=== PATIENT | male | born 1965 | race Caucasian/White ===

== ENCOUNTER 2019-01-09 10:15 | Outpatient (CLI) | payer OTHER ==
[~2019-01-09] VITALS: Ht 182.9 cm; Wt 86.2 kg
[2019-01-09] MEDS ORDERED: ATOR10TA66 PO (10:21)
[2019-01-09] MEDS ORDERED: LOSA25TA41 PO (10:21)
== END 2019-01-09 10:23 | disposition home or self-care (01) ==
LOC: PREOP 10:15
PROVIDERS: ATTEND Surgery
DX: Z01.818 Encounter for other preprocedural examination (principal)

== ENCOUNTER 2019-01-11 14:14 | Day surgery (SDC) | payer OTHER ==
[~2019-01-11] VITALS: Ht 182.9 cm; Wt 86.2 kg
[~2019-01-11 14:14] MED LIST: ATOR10TA66 PO; LOSA25TA41 PO
[2019-01-11] MEDS ORDERED: NS IV 500 ML 500 ML IV PRN (14:15)
[2019-01-11] MEDS ORDERED: LIDOCAINE JELLY 2% 6 ML SYRINGE MM PRN (14:15)
[2019-01-11] MEDS ORDERED: MIDAZOLAM 2 MG/2 ML (VERSED) VIAL IVP ONE (14:15)
[2019-01-11] MEDS ORDERED: fentaNYL INJECTION 100 MCG/2 ML AMP IVP ONE (14:15)
[2019-01-11] MEDS ORDERED: NS IV 500 ML 500 ML ONE (14:16)
[2019-01-11 14:25] VITALS: BP 130/82
--- NOTE | 2019-01-11 14:52 | Conscious Sedation/ASA ---
Conscious Sedation Pre-Proced Time 14:45 ASA Score 2 For ASA 3 and 4: Consider anesthesia and medical clearance. Also, for patients with a history of failed moderate sedation consider anesthesia. Airway Lungs Heart ASA score ASA 1: a normal healthy patient ASA 2: a patient with a mild systemic disease (mid diabetes, controlled hypertension, obesity ASA 3: a patient with a severe systemic disease that limits activity (angina, COPD, prior Myocardial infarction) ASA 4: a patient with an incapacitating disease that is a constant threat to life (CHF, renal failure) ASA 5: a moribund patient not expected to survive 24 hrs. (ruptured aneurysm) ASA 6: a declared brain- patient whose organs are being harvested. For emergent operations, add the letter E after the classification Mallampati Classification Grade 2 Sedation Plan Analgesia, Amnesia, Plan communicated to team members, Discussed options with patient/fam, Discussed risks with patient/fam The patient is an appropriate candidate to undergo the planned procedure, sedation, and anesthesia. The patient immediately re-assessed prior to indication. SUMMER MARTINEZ MD Jan 11, 2019 14:52
--- NOTE | 2019-01-11 14:53 | Progress Note-Pre Operative ---
Pre-Operative Progress Note H&P Reviewed The H&P was reviewed, patient examined and no changes noted. Date Seen by Provider: Jan 11, 2019 Time Seen by Provider: 14:45 Date H&P Reviewed: Jan 11, 2019 Time H&P Reviewed: 14:45 Pre-Operative Diagnosis: screening colonoscopy SUMMER MARTINEZ MD Jan 11, 2019 14:53
--- NOTE | 2019-01-11 14:54 | Discharge Inst-Surgical ---
D/C Lap Instructions-JUAN Follow Up Activity as tolerated Regular Diet Symptoms to Report: Fever over 101 degree F, Nausea/Vomiting Infection Signs and Symptoms to report: Increased redness, Foul odor of wound, Increased drainage Bathing instructions: May shower Operative Area Clean/Dry; Keep incision clean/dry If any problems/questions: Contact your physician or go to Emergency Room SUMMER MARTINEZ MD Jan 11, 2019 14:54
[2019-01-11] MEDS ORDERED: morphine INJ 10 MG/ML 1ML (SYR OR VIAL) IVP PRN ×2 (15:00)
[2019-01-11] MEDS ORDERED: ACETAMINOPHEN 325 MG TABLET PO PRN (15:00)
[2019-01-11] MEDS ORDERED: ONDANSETRON 4 MG/2 ML (SDV) Z0FRAN IVP PRN (15:00)
[2019-01-11] MEDS ORDERED: HYDROcodone/APAP 5 MG/325 MG (LORTAB) TAB PO PRN (15:00)
[2019-01-11] MEDS ORDERED: fentaNYL INJECTION 100 MCG/2 ML AMP ONE ×2 (15:15→15:16)
[2019-01-11] MEDS ORDERED: MIDAZOLAM 2 MG/2 ML (VERSED) VIAL ONE ×4 (15:15→15:16)
[2019-01-11] MEDS ORDERED: LIDOCAINE JELLY 2% 6 ML SYRINGE ONE (15:15)
--- NOTE | 2019-01-11 15:51 | Progress Note-Post Operative ---
Post-Operative Progess Note Surgeon (s)/Gas Pump Attendant (s) Surgeon SUMMER MARTINEZ MD Gas Pump Attendant: none Pre-Operative Diagnosis screening colonoscopy Post-Operative Diagnosis normal colon and rectum Procedure & Operative Findings Date of Procedure 01/11/19 Procedure Performed/Findings colonoscopy Anesthesia Type cs Estimated Blood Loss Estimated blood loss (mL): minimal Specimens/Packing Specimens Removed none SUMMER MARTINEZ MD Jan 11, 2019 15:51
[2019-01-11 16:05] VITALS: BP 106/64
[2019-01-11 16:30] VITALS: BP 112/66
[2019-01-11 16:40] VITALS: BP 112/66
--- NOTE | 2019-01-22 20:33 | OPERATIVE REPORT ---
DATE OF SERVICE: 01/11/2019 ATTENDING PRIMARY CARE PHYSICIAN: Dr. Funk. PREOPERATIVE DIAGNOSIS: Screening colonoscopy. POSTOPERATIVE DIAGNOSIS: Normal colon and rectum. PROCEDURE: Colonoscopy. SURGEON: Summer Martinez MD ANESTHESIA: Conscious sedation. ESTIMATED BLOOD LOSS: Minimal. FINDINGS: Normal colon and rectum. DISPOSITION: The patient tolerated the procedure well. INDICATIONS: The patient is a 53-year-old male referred over to us for a screening colonoscopy. He has not had a colonoscopy up to this point in his life. He does not report any major issues with diarrhea nor constipation as well as no red blood per rectum nor any dark tarry stools. He also does not report any family history of colon cancer. DESCRIPTION OF PROCEDURE: The patient was brought to the endoscopy suite, laid in the left lateral decubitus position. After adequate IV pain and sedating medications and conscious sedation anesthesia, a digital rectal examination was performed. No significant hemorrhoids were identified. The prostate gland was palpable and appeared normal. The endoscope was then intubated to the anus and rectum gently insufflated. The endoscope was then advanced to the valves of Arri[place] in the rectum with no polyps or any neoplasms identified. The endoscope was then advanced through the sigmoid colon where no diverticulosis identified. The endoscope was then advanced to the remainder of the descending, transverse and ascending colon to the cecum. These segments were normal. There were no polyps or any neoplasms identified throughout the colon or rectum. The endoscope was then slowly withdrawn while taking a second look and suctioning of residual air with no additional findings. The patient tolerated the procedure well. We will recommend continued conservative management with a high fiber diet with at least 30 grams of fiber per day as well as significant amounts of water to promote soft stools on a daily basis. He does not need another colonoscopy for another 10 years. Job ID: [id number] DocumentID: [id number] Dictated Date: 01/22/2019 15:13:21 Public Works Supervisor Date: 01/22/2019 20:33:01 Dictated By: SUMMER MARTINEZ MD
== END 2019-01-11 16:40 | disposition home or self-care (01) ==
LOC: ENDO 14:14
PROVIDERS: ATTEND Surgery
DX: Z12.11 Encounter for screening for malignant neoplasm of colon (principal); I10 Essential (primary) hypertension; E78.00 Pure hypercholesterolemia, unspecified; Z79.82 Long term (current) use of aspirin; Z79.899 Other long term (current) drug therapy

== ENCOUNTER 2020-03-26 15:58 | Emergency (ER) | payer OTHER ==
[~2020-03-26] VITALS: Ht 182.8 cm; Wt 90.7 kg
--- NOTE | 2020-03-26 16:14 | ED General ---
General Stated Complaint: CHEST PAIN;SOA Source of Information: Patient Exam Limitations: No Limitations History of Present Illness Date Seen by Provider: Mar 26, 2020 Time Seen by Provider: 16:10 Initial Comments to ER with reports of chest pain and shortness of breath and right axillary pain. This began about 3 weeks ago, some days he feels fine and other days he has some shortness of breath. He does have a little bit of a cough. It's nonproductive. No fever no chills. He occasionally has some sensation of his heart skipping a beat/palpitations and lightheadedness. He is a runner and otherwise healthy. He had an EKG last week and was normal. He has a CT scan ordered for Monday. However today he had some increasing shortness of breath and new right axillary and scapular pain which prompted his ER visit. Timing/Duration: 1-2 Days Severity: Moderate Associated Systoms: Chest Pain, Cough; No Headaches, No Malaise, No Na usea/Vomiting; Shortness of Air; No Weakness Allergies and Home Medications Allergies Coded Allergies: No Known Drug Allergies (Verified , 01/11/19) Home Medications Atorvastatin Calcium Unknown Strength Tablet, 1 TAB PO DAILY, (Reported) Losartan Potassium Unknown Strength Tablet, 1 TAB PO DAILY, (Reported) Patient Home Medication List Home Medication List Reviewed: Yes Review of Systems Review of Systems Constitutional: see HPI; No chills, No fever EENTM: see HPI Respiratory: no symptoms reported Cardiovascular: see HPI, palpitations Genitourinary: no symptoms reported Musculoskeletal: see HPI Skin: no symptoms reported Psychiatric/Neurological: No Symptoms Reported Hematologic/Lymphatic: No Symptoms Reported Immunological/Allergic: no symptoms reported Past Xscruyq-Nljwwn-Cqomob Hx Patient Social History Alcohol Beverage of Choice: Beer Type Used: Cigars Recent Hopitalizations: No Seasonal Allergies Seasonal Allergies: No Past Medical History Surgeries: Yes (nasal sinus sx) Appendectomy Respiratory: No Cardiac: Yes High Cholesterol, Hypertension Neurological: No Reproductive Disorders: No Genitourinary: No Gastrointestinal: No Musculoskeletal: No Endocrine: No HEENT: No Cancer: No Psychosocial: No Integumentary: No Blood Disorders: No Physical Exam Vital Signs Vital Signs - First Documented 03/26/20 16:00 Temp 36.7 Pulse 60 Resp 23 B/P (MAP) 160/103 (122) Pulse Ox 97 O2 Delivery Room Air Capillary Refill : Height, Weight, BMI Height: 6'0.00" Weight: 190lbs. 0.0oz. [id number]; 25.8 BMI Method:Stated General Appearance: No Apparent Distress, WD/WN Eyes: Bilateral Eye Normal Inspection, Bilateral Eye PERRL, Bilateral Eye EOMI Neck: No JVD Respiratory: Lungs Clear, Normal Breath Sounds, No Accessory Muscle Use, No Respiratory Distress Cardiovascular: Regular Rate, Rhythm, Normal Peripheral Pulses, Other (normal sinus no ectopy) Gastrointestinal: Normal Bowel Sounds, Non Tender, Soft Extremity: Normal Capillary Refill, Normal Inspection Neurologic/Psychiatric: Alert, Oriented x3 Skin: Normal Color, Warm/Dry Progress/Results/Core Measures Suspected Sepsis SIRS Temperature: Pulse: Respiratory Rate: Laboratory Tests 03/26/20 16:15: White Blood Count 9.5 Blood Pressure / Mean: Laboratory Tests 03/26/20 16:15: Creatinine 1.34H, Platelet Count 243, Total Bilirubin 0.4 Results/Orders Lab Results Laboratory Tests Test 03/26/20 16:15 Range/Units White Blood Count 9.5 4.3-11.0 10^3/uL Red Blood Count 4.70 4.35-5.85 10^6/uL Hemoglobin 14.1 13.3-17.7 G/DL Hematocrit 42 40-54 % Mean Corpuscular Volume 89 80-99 FL Mean Corpuscular Hemoglobin 30 25-34 PG Mean Corpuscular Hemoglobin Concent 34 32-36 G/DL Red Cell Distribution Width 13.5 10.0-14.5 % Platelet Count 243 130-400 10^3/uL Mean Platelet Volume 9.6 7.4-10.4 FL Neutrophils (%) (Auto) 83 H 42-75 % Lymphocytes (%) (Auto) 12 12-44 % Monocytes (%) (Auto) 4 0-12 % Eosinophils (%) (Auto) 1 0-10 % Basophils (%) (Auto) 0 0-10 % Neutrophils # (Auto) 7.9 H 1.8-7.8 X 10^3 Lymphocytes # (Auto) 1.1 1.0-4.0 X 10^3 Monocytes # (Auto) 0.4 0.0-1.0 X 10^3 Eosinophils # (Auto) 0.1 0.0-0.3 10^3/uL Basophils # (Auto) 0.0 0.0-0.1 10^3/uL Sodium Level 137 135-145 MMOL/L Potassium Level 4.3 3.6-5.0 MMOL/L Chloride Level 107 98-107 MMOL/L Carbon Dioxide Level 21 21-32 MMOL/L Anion Gap 9 5-14 MMOL/L Blood Urea Nitrogen 18 7-18 MG/DL Creatinine 1.34 H 0.60-1.30 MG/DL Estimat Glomerular Filtration Rate 56 BUN/Creatinine Ratio 13 Glucose Level 115 H 70-105 MG/DL Calcium Level 8.6 8.5-10.1 MG/DL Corrected Calcium 8.4 L 8.5-10.1 MG/DL Total Bilirubin 0.4 0.1-1.0 MG/DL Aspartate Amino Transf (AST/SGOT) 20 5-34 U/L Alanine Aminotransferase (ALT/SGPT) 33 0-55 U/L Alkaline Phosphatase 73 40-136 U/L Troponin I < 0.028 <0.028 NG/ML C-Reactive Protein High Sensitivity 0.02 0.00-0.50 MG/DL B-Type Natriuretic Peptide < 10.0 <100.0 PG/ML Total Protein 7.1 6.4-8.2 GM/DL Albumin 4.2 3.2-4.5 GM/DL Thyroid Stimulating Hormone (TSH) 0.51 0.35-4.94 UIU/ML Free Thyroxine 1.00 0.70-1.48 NG/DL My Orders Orders - JERRY STONE APRN [place] C Reactive Protein (03/26/20 16:09) Cbc With Automated Diff (03/26/20 16:09) Comprehensive Metabolic Panel (03/26/20 16:09) Troponin I (03/26/20 16:09) BNP (03/26/20 16:09) Ed Iv/Invasive Line Start (03/26/20 16:09) Ct Angio Chest W (03/26/20 16:09) Thyroid Stimulating Hormone (03/26/20 16:14) Free T4 (Free Thyroxine) (03/26/20 16:14) Ns Iv 1000 Ml (Sodium Chloride 0.9%) (03/26/20 17:00) Iohexol Injection (Omnipaque 350 Mg/Ml 1 (03/26/20 17:15) Received Contrast (Hold Metformin- Contr (03/26/20 17:15) Sodium Chloride Flush (Catheter Flush Sy (03/26/20 17:15) Ns (Ivpb) (Sodium Chloride 0.9% Ivpb Bag (03/26/20 17:15) Medications Given in ED Current Medications Medications Dose Ordered Sig/Ernestina Route Start Time Stop Time Status Last Admin Dose Admin Iohexol 100 ml ONCE ONCE IV 03/26/20 17:15 03/26/20 17:16 DC 03/26/20 17:19 77 ML Sodium Chloride 10 ml NEEDED PRN IV 03/26/20 17:15 03/26/20 17:19 10 ML Sodium Chloride 100 ml ONCE ONCE IV 03/26/20 17:15 03/26/20 17:16 DC 03/26/20 17:19 80 ML Vital Signs/I&O 03/26/20 03/26/20 16:00 16:00 Temp 36.7 Pulse 60 Resp 23 B/P (MAP) 160/103 (122) Pulse Ox 97 O2 Delivery Room Air Room Air Capillary Refill : Diagnostic Imaging Diagonstic Imaging: CT Comments NAME: J[facility] RENDON [facility] REC#: [id number] PT STATUS: REG ER : 1965 PHYSICIAN: JERRY STONE DIRECTOR OF NEUROLOGY ADMIT DATE: 03/26/20/ER Draft Date of Exam:03/26/20 CT ANGIO CHEST W PROCEDURE: CT angiography of the chest with contrast. TECHNIQUE: Multiple contiguous axial images were obtained through the chest after uneventful bolus administration of intravenous contrast. 3D reconstructed CTA MIP acquisitions were also performed. Auto Exposure Controls were utilized during the CT exam to meet ALARA standards for radiation dose reduction. INDICATION: Shortness of breath. FINDINGS: There are no prior CTA chest examinations available for comparison. The plain film examination of the chest performed on 03/20/2016 failed to show any sign of an acute cardiopulmonary abnormality. There is no defect within the pulmonary arteries to indicate a pulmonary embolus. The aorta is not abnormally dilated and there is no sign of a dissection. The heart size is within normal limits. There are no coronary artery calcifications identified. There is no mediastinal or hilar adenopathy. The thyroid gland is generally unremarkable. The lungs are clear. There is no evidence for failure, pneumonia, or for pleural effusion. The sections through the upper abdomen fail to show any sign of an acute abnormality. The bone windows are unremarkable for a fracture or for a destructive lesion. IMPRESSION: There is no evidence for an acute cardiopulmonary abnormality. In particular, there is no sign of a pulmonary embolus or of an aortic dissection. Dictated on workstation # [id number] Dict: 03/26/20 1727 Trans: 03/26/20 1736 [id number] Interpreted by: CHIDI RYAN MD Electronically signed by: Departure Impression Primary Impression: Palpitations Additional Impression: Pain in right axilla Disposition: 01 HOME, SELF-CARE Condition: Stable Departure-Patient Inst. Decision time for Depature: 17:36 Referrals: AYANA DYSON MD (PCP/Family) Primary Care Physician Patient Instructions: Palpitations (DC) Add. Discharge Instructions: Call scheduling department tomorrow to get the Holter monitor placed. Return to ER for any concerns or worsening symptoms. Call Dr. Dyson tomorrow. Copy Copies To 1: AYANA DYSON MD, PETER J DIRECTOR OF NEUROLOGY Mar 26, 2020 16:14
[2020-03-26 16:23] LABS: BASOPHILS % (AUTO) 0 % (0-10); EOSINOPHILS # (AUTO) 0.1 10^3/uL (0.0-0.3); EOSINOPHILS % (AUTO) 1 % (0-10); HEMATOCRIT 42 % (40-54); HEMOGLOBIN 14.1 G/DL (13.3-17.7); LYMPHOCYTES # (AUTO) 1.1 X 10^3 (1.0-4.0); LYMPHOCYTES % (AUTO) 12 % (12-44); MEAN CORPUSCULAR HEMOGLOBIN 30 PG (25-34); MEAN CORPUSCULAR HGB CONC 34 G/DL (32-36); MEAN CORPUSCULAR VOLUME 89 FL (80-99); MEAN PLATELET VOLUME 9.6 FL (7.4-10.4); MONOCYTES # (AUTO) 0.4 X 10^3 (0.0-1.0); MONOCYTES % (AUTO) 4 % (0-12); NEUTROPHILS # (AUTO) 7.9 X 10^3 (1.8-7.8); NEUTROPHILS % (AUTO) 83 % (42-75); PLATELET COUNT 243 10^3/uL (130-400); RED CELL DISTRIBUTION WIDTH 13.5 % (10.0-14.5); WHITE BLOOD COUNT 9.5 10^3/uL (4.3-11.0)
[2020-03-26 16:39] LABS: ALBUMIN 4.2 GM/DL (3.2-4.5); CHLORIDE 107 MMOL/L (98-107); POTASSIUM 4.3 MMOL/L (3.6-5.0); SODIUM 137 MMOL/L (135-145)
[2020-03-26 16:40] LABS: CALCIUM 8.6 MG/DL (8.5-10.1)
[2020-03-26 16:41] LABS: GLUCOSE 115 MG/DL (70-105)
[2020-03-26 16:42] LABS: TOTAL PROTEIN 7.1 GM/DL (6.4-8.2)
[2020-03-26 16:43] LABS: BILIRUBIN,TOTAL 0.4 MG/DL (0.1-1.0); CARBON DIOXIDE 21 MMOL/L (21-32)
[2020-03-26 16:45] LABS: ALKALINE PHOSPHATASE 73 U/L (40-136); CREATININE SERUM 1.34 MG/DL (0.60-1.30); GFR ESTIMATED 56
[2020-03-26 16:46] LABS: BUN/CREATININE RATIO 13
[2020-03-26 16:48] LABS: ALANINE AMINOTRANSFERASE 33 U/L (0-55)
[2020-03-26] MEDS ORDERED: NS IV 1000 ML 1,000 ML IV SCH (17:00)
[2020-03-26] MEDS ORDERED: NS 100 ML (IVPB) BAG IV ONE (17:15)
[2020-03-26] MEDS ORDERED: CATHETER FLUSH 10 ML SYR IV PRN (17:15)
[2020-03-26] MEDS ORDERED: HOLD METFORMIN - RECEIVED CONTRAST 20 ML VIAL IV SCH (17:15)
[2020-03-26] MEDS ORDERED: IOHEXOL 350 MG/ML 100 ML (OMNIPAQUE 350) VIAL IV ONE (17:15)
--- NOTE | 2020-03-26 17:37 | Diagnostic Imaging Report ---
PROCEDURE: CT angiography of the chest with contrast. TECHNIQUE: Multiple contiguous axial images were obtained through the chest after uneventful bolus administration of intravenous contrast. 3D reconstructed CTA MIP acquisitions were also performed. Auto Exposure Controls were utilized during the CT exam to meet ALARA standards for radiation dose reduction. INDICATION: Shortness of breath. FINDINGS: There are no prior CTA chest examinations available for comparison. The plain film examination of the chest performed on 03/20/2016 failed to show any sign of an acute cardiopulmonary abnormality. There is no defect within the pulmonary arteries to indicate a pulmonary embolus. The aorta is not abnormally dilated and there is no sign of a dissection. The heart size is within normal limits. There are no coronary artery calcifications identified. There is no mediastinal or hilar adenopathy. The thyroid gland is generally unremarkable. The lungs are clear. There is no evidence for failure, pneumonia, or for pleural effusion. The sections through the upper abdomen fail to show any sign of an acute abnormality. The bone windows are unremarkable for a fracture or for a destructive lesion. IMPRESSION: There is no evidence for an acute cardiopulmonary abnormality. In particular, there is no sign of a pulmonary embolus or of an aortic dissection. Dictated by: Dictated on workstation # [id number]
[2020-03-26 18:13] VITALS: BP 139/92
== END 2020-03-26 18:13 | disposition home or self-care (01) ==
LOC: EDUNIT# 15:58 → ER 16:00
DX: R00.2 Palpitations (principal); M79.621 Pain in right upper arm; I10 Essential (primary) hypertension; E78.00 Pure hypercholesterolemia, unspecified
CPT/HCPCS: 36415; 71275; 80053; 83880; 84439; 84443; 84484; 85025; 86141

== ENCOUNTER 2020-03-27 09:00 | Outpatient (RCR) | payer OTHER | END 2020-06-25 | disposition home or self-care (01) | LOC: CARD 09:00 | PROVIDERS: ATTEND Nurse Practitioner Family | DX: R00.1 Bradycardia, unspecified (principal) | CPT/HCPCS: 93225; 93226 ==

== ENCOUNTER → 2020-03-27 | Outpatient (CLI) | payer OTHER | LOC: LABNPT 05:48 | DX: M35.3 Polymyalgia rheumatica (principal); R05 Cough | CPT/HCPCS: 85652; 86038; 86431; 86663; 86664; 86665 ==